=== PATIENT | female | born 1990 | race American Indian/Alaskan Native ===

== ENCOUNTER 2017-02-10 12:27 | Emergency (ER) | payer MEDICAID, OTHER ==
[2017-02-10 13:18] LABS: Basophils % (Auto) 0.2 % (0.0-1.8); Eosinophils % (Auto) 0.4 % (0.0-4.3); Hematocrit 37.1 % (30.3-42.9); Hemoglobin 12.3 gm/dl (10.1-14.3); Mean Corpuscular HGB Conc 33 % (30-34); Mean Corpuscular Hemoglobin 28 pg (28-32); Mean Corpuscular Volume 86 fl (79-97); Platelet Count 171 K/mm3 (140-440); Red Blood Count 4.32 M/mm3 (3.65-5.03); Red Cell Distribution Width 14.9 % (13.2-15.2); White Blood Count 9.5 K/mm3 (4.5-11.0)
[2017-02-10 13:52] LABS: Bacteria,Urine 1+ /HPF (Negative); Bilirubin,Urine NEG (Negative); Blood,Urine LG (Negative); Ketones,Urine NEG (Negative); Leukocyte Esterase,Urine NEG (Negative); Nitrite,Urine NEG (Negative); Urobilinogen,Urine < 2.0 mg/dL (<2.0)
--- NOTE | 2017-02-10 13:53 | Emergency Department Report ---
ED Female HPI - General Chief complaint: Vaginal Bleeding Stated complaint: BACK PAIN/VAGINAL BLEEDING Time Seen by Provider: 02/10/17 13:47 Source: patient Mode of arrival: Ambulatory Limitations: No Limitations - History of Present Illness Initial comments: 26 yo female c/o back pain a d vaginal bleeding with . Pt became aware that she was 2 months ago with a home test. She has had no care and began having vaginal bleeding this morning. This is the time that her normal menses would arrive. She is a because of a spontaneous miscarriage. Pt thought that she could not get . MD Complaint: vaginal bleeding -: Gradual, This morning Location: other (back pain) Severity: severe Severity scale (0 -10): 7 Quality: aching Consistency: constant Improves with: none Worsens with: movement Are you Now?: Yes Associated Symptoms: nausea/vomiting (nausea ,has not vomitied) - Related Data Sexually active: Yes Previous Rx's Medication Instructions Recorded Last Taken Type Metoclopramide [Reglan] 10 mg PO TID #12 tab 02/10/17 Unknown Rx Allergies Allergy/AdvReac Type Severity Reaction Status Date / Time No Known Allergies Allergy Unverified 02/10/17 12:35 ED Review of Systems ROS: Stated complaint: BACK PAIN/VAGINAL BLEEDING Other details as noted in HPI Constitutional: denies: chills, fever Eyes: denies: eye pain, eye discharge, vision change ENT: denies: ear pain, throat pain Respiratory: denies: cough, shortness of breath, wheezing Cardiovascular: denies: chest pain, palpitations Endocrine: no symptoms reported Gastrointestinal: nausea. denies: abdominal pain, diarrhea Genitourinary: denies: urgency, dysuria, discharge Musculoskeletal: back pain. denies: joint swelling, arthralgia Skin: denies: rash, lesions Neurological: denies: headache, weakness, paresthesias Psychiatric: denies: anxiety, depression Hematological/Lymphatic: denies: easy bleeding, easy bruising ED Past Medical Hx - Past Medical History Previous Medical History?: Yes Additional medical history: 1, miscarriage 1,Hep B - Surgical History Past Surgical History?: No - Family History Family history: hypertension - Social History Smoking Status: Former Smoker Substance Use Type: None - Medications Home Medications: Home Medications Medication Instructions Recorded Confirmed Last Taken Type Metoclopramide [Reglan] 10 mg PO TID #12 tab 02/10/17 Unknown Rx ED Physical Exam - General Limitations: No Limitations General appearance: alert, in no apparent distress - Head Head exam: Present: atraumatic, normocephalic - Eye Eye exam: Present: normal appearance - ENT ENT exam: Present: mucous membranes moist - Neck Neck exam: Present: normal inspection, full ROM - Respiratory Respiratory exam: Present: normal lung sounds bilaterally. Absent: respiratory distress, wheezes - Cardiovascular Cardiovascular Exam: Present: regular rate, normal rhythm. Absent: systolic murmur, diastolic murmur, rubs, gallop - GI/Abdominal GI/Abdominal exam: Present: soft, normal bowel sounds - Rectal Rectal exam: Present: deferred - Extremities Exam Extremities exam: Present: normal inspection, full ROM - Back Exam Back exam: Present: normal inspection, full ROM, tenderness (across lower lumbar area) - Neurological Exam Neurological exam: Present: alert, oriented X3, CN II-XII intact - Psychiatric Psychiatric exam: Present: normal affect, normal mood - Skin Skin exam: Present: warm, dry, intact, normal color. Absent: rash ED Course Vital Signs 02/10/17 02/10/17 02/10/17 12:36 13:52 14:00 Temperature 99.6 F Pulse Rate 84 73 73 Respiratory 20 11 L 23 Rate Blood Pressure 168/94 121/64 O2 Sat by Pulse 100 99 Oximetry ED Medical Decision Making - Lab Data Result diagrams: 02/10/17 12:51 - Radiology Data Radiology results: report reviewed (US: SIUP, 13 WEEKS AND 4 DAYS, 3.3 LEFT OVARIAN CYSTS) Critical care attestation.: If time is entered above; I have spent that time in minutes in the direct care of this critically ill patient, excluding procedure time. ED Disposition Clinical Impression: Threatened miscarriage, Nausea, Ovarian cyst Qualifiers: Weeks of gestation: 9 weeks Qualified Code(s): Z3A.09 - 9 weeks gestation of Back ache Qualifiers: Chronicity: acute Back pain laterality: unspecified Sciatica presence: without sciatica Disposition: - TO HOME OR SELFCARE Is pt being admited?: No Does the pt Need Aspirin: No Condition: Stable Instructions: Threatened Miscarriage (ED), (ED), Morning Sickness (ED ) Prescriptions: Metoclopramide [Reglan] 10 mg PO TID #12 tab Referrals: DICRISTINA,ALICIA, MD [Primary Care Provider] - 3-5 Days FE MARAVILLA MD [Staff Physician] - 3-5 Days ALAN VELÁSQUEZ MD [Staff Physician] - 3-5 Days KANG COLLINS MD [Referring] - 3-5 Days Time of Disposition: 15:37
[2017-02-10 13:58] LABS: RBC,Urine > 182.0 /HPF (0.0-6.0)
--- NOTE | 2017-02-10 15:31 | Ultrasound Report ---
ULTRASOUND OB LESS THAN 14 WEEKS FETUS History vaginal bleeding, pain, question ectopic . Technique: Transabdominal ultrasound with Doppler interrogation. Findings: The uterus is anteverted. The uterus measures 16 x 7 x 7 cm. No uterine mass. An intrauterine with heart rate measuring 160 beats per minute is identified. Estimated age of ultrasound is 13 weeks, 4 days. Estimated due date is 08/14/17. The placenta appears to be forming in the posterior, fundal region. No subplacental collection. Amniotic fluid volume appears normal. The right ovary is unremarkable. The left ovary contains a 3.3 cm unilocular cyst. No pelvic fluid collection. Impression: Viable, single intrauterine dated at 13 weeks, 4 days. 3.3 cm left ovarian cyst.
[2017-02-10 15:56] VITALS: BP 124/78
== END 2017-02-10 15:56 | disposition home or self-care (01) ==
LOC: ED 12:27
DX: O20.0 Threatened abortion (principal); O34.81 Maternal care for other abnormalities of pelvic organs, first trimester; N83.202 Unspecified ovarian cyst, left side; Z3A.09 9 weeks gestation of pregnancy
CPT/HCPCS: 36415; 76801; 81001; 84702; 85025; 86850; 86900; 86901; 87210; 87591; 99284

== ENCOUNTER 2017-02-14 05:03 | Emergency (ER) | payer MEDICAID, OTHER ==
[2017-02-14 05:59] LABS: Basophils % (Auto) 0.2 % (0.0-1.8); Eosinophils % (Auto) 0.5 % (0.0-4.3); Hematocrit 37.5 % (30.3-42.9); Hemoglobin 12.5 gm/dl (10.1-14.3); Mean Corpuscular HGB Conc 33 % (30-34); Mean Corpuscular Hemoglobin 28 pg (28-32); Mean Corpuscular Volume 86 fl (79-97); Platelet Count 165 K/mm3 (140-440); Red Blood Count 4.39 M/mm3 (3.65-5.03); Red Cell Distribution Width 14.9 % (13.2-15.2)
[2017-02-14 06:12] LABS: Alanine Aminotransferase 27 units/L (7-56); Albumin/Globulin Ratio 1.4 %; Alkaline Phosphatase 38 units/L (35-129); Anion Gap 19 mmol/L; BUN/Creatinine Ratio 10; Blood Urea Nitrogen 5 mg/dL (7-17); Calcium 9.1 mg/dL (8.4-10.2); Carbon Dioxide 22 mmol/L (22-30); Chloride 102.5 mmol/L (98-107); Glucose 98 mg/dL (65-100); Lipase 15 units/L (13-60); Sodium 139 mmol/L (137-145); Total Protein 6.9 g/dL (6.3-8.2)
[2017-02-14 06:34] LABS: Bilirubin,Urine NEG (Negative); Blood,Urine MOD (Negative); Ketones,Urine NEG (Negative); Leukocyte Esterase,Urine NEG (Negative); Mucus,Urine FEW /HPF; Nitrite,Urine NEG (Negative); Protein,Urine <15 mg/dL mg/dL (Negative); Urobilinogen,Urine < 2.0 mg/dL (<2.0)
--- NOTE | 2017-02-14 07:59 | Ultrasound Report ---
FINAL REPORT EXAM: US OB > = 14 WEEKS FETUS HISTORY: pelvic pain, Vaginal bleed COMPARISONS: None. FINDINGS: Transabdominal grayscale, color Doppler and M-mode early 2nd trimester ultrasound Single living intrauterine with recorded cardiac activity of 160 beats per minute. Amniotic fluid volume is subjectively normal. The cervix appears closed and measures approximately 4.2 cm in length. Hypoechoic perigestational probable hemorrhage near the fundus measures to 4.3 cm and involves much less than 50 percent of the gestational sac surface area. The placenta is posterior. Estimated gestational age by ultrasound today is 14 weeks 2 days corresponding to delivery date of 08/13/2017. Biparietal diameter is 2.6 cm Head circumference is 9.9 cm Abdominal circumference is 8 cm Femoral length is 1.2 cm A functional left ovarian cyst measures up to 3.6 cm. The ovaries otherwise demonstrate normal echotexture and measure 6 x 2.1 x 4.3 cm on the right and 6.4 x 4.1 x 5.2 cm on the left. IMPRESSION: Single living intrauterine without evident complication and with estimated gestational age of 14 weeks 2 days corresponding to delivery date of 08/13/2017. Enlarged ovaries without additional findings of torsion. Consider repeat exam for worsening/persistent symptoms. Otherwise, anatomy scan at 20-22 weeks gestational age is suggested.
--- NOTE | 2017-02-14 11:59 | Emergency Department Report ---
ED General Adult HPI - General Chief complaint: Vaginal Bleeding Stated complaint: VAG VLEEDING/13WKS GEST Time Seen by Provider: 02/14/17 11:58 Source: patient Mode of arrival: Ambulatory Limitations: No Limitations - History of Present Illness Severity scale (0 -10): 0 - Related Data Previous Rx's Medication Instructions Recorded Last Taken Type Metoclopramide [Reglan] 10 mg PO TID #12 tab 02/10/17 Unknown Rx Allergies Allergy/AdvReac Type Severity Reaction Status Date / Time No Known Allergies Allergy Unverified 02/10/17 12:35 ED Review of Systems ROS: Stated complaint: VAG VLEEDING/13WKS GEST Other details as noted in HPI ED Past Medical Hx - Past Medical History Previous Medical History?: Yes Additional medical history: 1, miscarriage 1,Hep B. Obesity - Surgical History Past Surgical History?: No - Social History Smoking Status: Former Smoker Substance Use Type: None - Medications Home Medications: Home Medications Medication Instructions Recorded Confirmed Last Taken Type Metoclopramide [Reglan] 10 mg PO TID #12 tab 02/10/17 Unknown Rx ED Physical Exam - General Limitations: No Limitations ED Course Vital Signs 02/14/17 02/14/17 05:12 11:52 Temperature 99.5 F Pulse Rate 76 Respiratory 16 Rate Blood Pressure 141/78 [Right] O2 Sat by Pulse 100 98 Oximetry ED Medical Decision Making - Lab Data Result diagrams: 02/14/17 05:35 02/14/17 05:35 Vital Signs 02/14/17 02/14/17 05:12 11:52 Temperature 99.5 F Pulse Rate 76 Respiratory 16 Rate Blood Pressure 141/78 [Right] O2 Sat by Pulse 100 98 Oximetry Lab Results 02/14/17 02/14/17 02/14/17 Range/Units 05:35 05:35 05:35 WBC 8.0 (4.5-11.0) K/mm3 RBC 4.39 (3.65-5.03) M/mm3 Hgb 12.5 (10.1-14.3) gm/dl Hct 37.5 (30.3-42.9) % MCV 86 (79-97) fl MCH 28 (28-32) pg MCHC 33 (30-34) % RDW 14.9 (13.2-15.2) % Plt Count 165 (140-440) K/mm3 Lymph % (Auto) 29.2 (13.4-35.0) % [place] % (Auto) 13.0 H (0.0-7.3) % Eos % (Auto) 0.5 (0.0-4.3) % Baso % (Auto) 0.2 (0.0-1.8) % Lymph # 2.3 (1.2-5.4) K/mm3 [place] # 1.0 H (0.0-0.8) K/mm3 Eos # 0.0 (0.0-0.4) K/mm3 Baso # 0.0 (0.0-0.1) K/mm3 Seg Neutrophils % 57.1 (40.0-70.0) % Seg Neutrophils # 4.5 (1.8-7.7) K/mm3 Sodium 139 (137-145) mmol/L Potassium 4.0 (3.6-5.0) mmol/L Chloride 102.5 (98-107) mmol/L Carbon Dioxide 22 (22-30) mmol/L Anion Gap 19 mmol/L BUN 5 L (7-17) mg/dL Creatinine 0.5 L (0.7-1.2) mg/dL Estimated GFR > 60 ml/min BUN/Creatinine Ratio 10 % Glucose 98 (65-100) mg/dL Calcium 9.1 (8.4-10.2) mg/dL Total Bilirubin 0.40 (0.1-1.2) mg/dL AST 22 (5-40) units/L ALT 27 (7-56) units/L Alkaline Phosphatase 38 (35-129) units/L Total Protein 6.9 (6.3-8.2) g/dL Albumin 4.0 (3.9-5) g/dL Albumin/Globulin Ratio 1.4 % Lipase 15 (13-60) units/L HCG, Quant 16536 H (0-4) mIU/mL Urine Color (Yellow) Urine Turbidity (Clear) Urine pH (5.0-7.0) Ur Specific [place] (1.003-1.030) Urine Protein (Negative) mg/dL Urine Glucose (UA) (Negative) mg/dL Urine Ketones (Negative) mg/dL Urine Blood (Negative) Urine Nitrite (Negative) Urine Bilirubin (Negative) Urine Urobilinogen (<2.0) mg/dL Ur Leukocyte Esterase (Negative) Urine WBC (Auto) (0.0-6.0) /HPF Urine RBC (Auto) (0.0-6.0) /HPF U Epithel Cells (Auto) (0-13.0) /HPF Urine Mucus /HPF Blood Type Antibody Screen 02/14/17 02/14/17 Range/Units 05:35 06:07 WBC (4.5-11.0) K/mm3 RBC (3.65-5.03) M/mm3 Hgb (10.1-14.3) gm/dl Hct (30.3-42.9) % MCV (79-97) fl MCH (28-32) pg MCHC (30-34) % RDW (13.2-15.2) % Plt Count (140-440) K/mm3 Lymph % (Auto) (13.4-35.0) % [place] % (Auto) (0.0-7.3) % Eos % (Auto) (0.0-4.3) % Baso % (Auto) (0.0-1.8) % Lymph # (1.2-5.4) K/mm3 [place] # (0.0-0.8) K/mm3 Eos # (0.0-0.4) K/mm3 Baso # (0.0-0.1) K/mm3 Seg Neutrophils % (40.0-70.0) % Seg Neutrophils # (1.8-7.7) K/mm3 Sodium (137-145) mmol/L Potassium (3.6-5.0) mmol/L Chloride (98-107) mmol/L Carbon Dioxide (22-30) mmol/L Anion Gap mmol/L BUN (7-17) mg/dL Creatinine (0.7-1.2) mg/dL Estimated GFR ml/min BUN/Creatinine Ratio % Glucose (65-100) mg/dL Calcium (8.4-10.2) mg/dL Total Bilirubin (0.1-1.2) mg/dL AST (5-40) units/L ALT (7-56) units/L Alkaline Phosphatase (35-129) units/L Total Protein (6.3-8.2) g/dL Albumin (3.9-5) g/dL Albumin/Globulin Ratio % Lipase (13-60) units/L HCG, Quant (0-4) mIU/mL Urine Color Yellow (Yellow) Urine Turbidity Clear (Clear) Urine pH 6.0 (5.0-7.0) Ur Specific [place] 1.020 (1.003-1.030) Urine Protein <15 mg/dl (Negative) mg/dL Urine Glucose (UA) Neg (Negative) mg/dL Urine Ketones Neg (Negative) mg/dL Urine Blood Mod (Negative) Urine Nitrite Neg (Negative) Urine Bilirubin Neg (Negative) Urine Urobilinogen < 2.0 (<2.0) mg/dL Ur Leukocyte Esterase Neg (Negative) Urine WBC (Auto) 1.0 (0.0-6.0) /HPF Urine RBC (Auto) 3.0 (0.0-6.0) /HPF U Epithel Cells (Auto) 3.0 (0-13.0) /HPF Urine Mucus Few /HPF Blood Type O POSITIVE Antibody Screen Negative - Radiology Data Radiology results: report reviewed, image reviewed Referring Physician: LUDWIG FRAGOSO Patient Name: JONATHON GARCIA Date of : 1990 Sex: Female Report Date: 2017-02-14 Report Status: [place] [address] Ultrasound Report Signed Patient: JONATHON GARCIA MR#: [id number] : 1990 Acct:[id number] Age/Sex: 26 / F ADM Date: 02/14/17 Loc: ED Attending Dr: Ordering Physician: LUDWIG FRAGOSO MD Date of Service: 02/14/17 Procedure(s): US OB >= 14 weeks Fetus Accession Number(s): [id number] cc: LUDWIG FRAGOSO MD FINAL REPORT EXAM: US OB gt; = 14 WEEKS FETUS HISTORY: pelvic pain, Vaginal bleed COMPARISONS: None. FINDINGS: Transabdominal grayscale, color Doppler and M-mode early 2nd trimester ultrasound Single living intrauterine with recorded cardiac activity of 160 beats per minute. Amniotic fluid volume is subjectively normal. The cervix appears closed and measures approximately 4.2 cm in length. Hypoechoic perigestational probable hemorrhage near the fundus measures to 4.3 cm and involves much less than 50 percent of the gestational sac surface area. The placenta is posterior. Estimated gestational age by ultrasound today is 14 weeks 2 days corresponding to delivery date of 08/13/2017. Biparietal diameter is 2.6 cm Head circumference is 9.9 cm Abdominal circumference is 8 cm Femoral length is 1.2 cm A functional left ovarian cyst measures up to 3.6 cm. The ovaries otherwise demonstrate normal echotexture and measure 6 x 2.1 x 4.3 cm on the right and 6.4 x 4.1 x 5.2 cm on the left. IMPRESSION: Single living intrauterine without evident complication and with estimated gestational age of 14 weeks 2 days corresponding to delivery date of 08/13/2017. Enlarged ovaries without additional findings of torsion. Consider repeat exam for worsening/persistent symptoms. Otherwise, anatomy scan at 20-22 weeks gestational age is suggested. Transcribed By: MB Dictated By: ROSEMARIE DAY MD Electronically Authenticated By: ROSEMARIE DAY MD Signed Date/Time: 02/14/17355 DD/ 5 TD/TT: 02/14/17355 Critical care attestation.: If time is entered above; I have spent that time in minutes in the direct care of this critically ill patient, excluding procedure time. ED Disposition Condition: Stable Referrals: PRIMARY CAREMD [Primary Care Provider] - 3-5 Days
--- NOTE | 2017-02-14 12:08 | Emergency Department Report ---
ED Female HPI - General Chief complaint: Vaginal Bleeding Stated complaint: VAG VLEEDING/13WKS GEST Time Seen by Provider: 02/14/17 11:58 Source: patient, RN notes reviewed, old records reviewed Mode of arrival: Ambulatory Limitations: No Limitations - History of Present Illness Initial comments: This is a 26-year-old female who was previously unknown to this provider, she is 2, para 0. Presents to the ER with a complaint of vaginal bleeding clotting. Patient had similar symptoms on Thursday, her symptoms are slightly worsened. Denies headache, neck pain, chest pain, shortness of breath, irritative/obstructive urinary symptoms. Patient to me makes no indication of abdominal pain or right lower quadrant pain. Patient reports recent vigorous sexual intercourse with her male partner this past Thursday. Her symptoms are intermittent, they do not radiate anywhere, and they did not have exacerbating or relieving factors. MD Complaint: vaginal bleeding -: Gradual Quality: cramping Consistency: intermittent Improves with: none Worsens with: none Are you Now?: Yes Associated Symptoms: vaginal bleeding. denies: nausea/vomiting, fever/chills, headaches, loss of appetite, dysuria, hematuria, rash, shortness of breath, syncope, weakness - Related Data Sexually active: Yes Previous Rx's Medication Instructions Recorded Last Taken Type Metoclopramide [Reglan] 10 mg PO TID #12 tab 02/10/17 Unknown Rx Doxylamine Succinate/Vit B6 1 each PO QHS PRN #30 tablet. 02/14/17 Unknown Rx [Chyna Quintana 10-10 mg Tablet] Vit Calc,Iron,Folic 1 each PO QDAY #30 tablet 02/14/17 Unknown Rx [ Vitamins] Allergies Allergy/AdvReac Type Severity Reaction Status Date / Time No Known Allergies Allergy Unverified 02/10/17 12:35 ED Review of Systems ROS: Stated complaint: VAG VLEEDING/13WKS GEST Other details as noted in HPI ED Past Medical Hx - Past Medical History Previous Medical History?: Yes Additional medical history: 1, miscarriage 1,Hep B. Obesity - Surgical History Past Surgical History?: No - Social History Smoking Status: Former Smoker Substance Use Type: None - Medications Home Medications: Home Medications Medication Instructions Recorded Confirmed Last Taken Type Metoclopramide [Reglan] 10 mg PO TID #12 tab 02/10/17 Unknown Rx Doxylamine Succinate/Vit B6 1 each PO QHS PRN #30 tablet. 02/14/17 Unknown Rx [Chyna Quintana 10-10 mg Tablet] Vit Calc,Iron,Folic 1 each PO QDAY #30 tablet 02/14/17 Unknown Rx [ Vitamins] ED Physical Exam - General Limitations: No Limitations General appearance: alert, in no apparent distress - Head Head exam: Present: atraumatic, normocephalic - Eye Eye exam: Present: normal appearance, EOMI. Absent: nystagmus - ENT ENT exam: Present: normal exam, normal orophraynx, mucous membranes moist, normal external ear exam - Neck Neck exam: Present: normal inspection, full ROM - Respiratory Respiratory exam: Present: normal lung sounds bilaterally. Absent: respiratory distress - Cardiovascular Cardiovascular Exam: Present: regular rate, normal rhythm, normal heart sounds. Absent: systolic murmur, diastolic murmur, rubs, gallop - GI/Abdominal GI/Abdominal exam: Present: soft, normal bowel sounds. Absent: distended, tenderness, guarding, rebound, rigid, pulsatile mass - External exam: Present: normal external exam Speculum exam: Present: normal speculum exam, vaginal bleeding Bi-manual exam: Present: normal bi-manual exam, other (escorted by avionic technician Naa). Absent: cervical motion tendernes, adnexal tenderness, adnexal mass - Extremities Exam Extremities exam: Present: normal inspection, full ROM, normal capillary refill. Absent: pedal edema, joint swelling, calf tenderness - Back Exam Back exam: Present: normal inspection, full ROM. Absent: tenderness, CVA tenderness (R), paraspinal tenderness, vertebral tenderness - Neurological Exam Neurological exam: Present: alert, oriented X3, CN II-XII intact, normal gait, other (Extraocular movements intact. Tongue midline. No facial droop. Facial sensation intact to light touch in the V1, V2, V3 distribution bilaterally. 5 and 5 strength in 4 extremities.. Sensation is intact to light touch in 4 extremities.). Absent: motor sensory deficit - Psychiatric Psychiatric exam: Present: normal affect, normal mood - Skin Skin exam: Present: warm, dry, intact, normal color. Absent: rash ED Course Vital Signs 12/23/17 12/23/17 12/23/17 05:12 11:52 12:06 Temperature 99.5 F Pulse Rate 76 63 Respiratory 16 20 Rate Blood Pressure 131/64 Blood Pressure 141/78 [Right] O2 Sat by Pulse 100 98 100 Oximetry ED Medical Decision Making - Lab Data Result diagrams: 02/14/17 05:35 02/14/17 05:35 Vital Signs 02/14/17 02/14/17 05:12 11:52 Temperature 99.5 F Pulse Rate 76 Respiratory 16 Rate Blood Pressure 141/78 [Right] O2 Sat by Pulse 100 98 Oximetry Lab Results 02/14/17 02/14/17 02/14/17 Range/Units 05:35 05:35 05:35 WBC 8.0 (4.5-11.0) K/mm3 RBC 4.39 (3.65-5.03) M/mm3 Hgb 12.5 (10.1-14.3) gm/dl Hct 37.5 (30.3-42.9) % MCV 86 (79-97) fl MCH 28 (28-32) pg MCHC 33 (30-34) % RDW 14.9 (13.2-15.2) % Plt Count 165 (140-440) K/mm3 Lymph % (Auto) 29.2 (13.4-35.0) % [place] % (Auto) 13.0 H (0.0-7.3) % Eos % (Auto) 0.5 (0.0-4.3) % Baso % (Auto) 0.2 (0.0-1.8) % Lymph # 2.3 (1.2-5.4) K/mm3 [place] # 1.0 H (0.0-0.8) K/mm3 Eos # 0.0 (0.0-0.4) K/mm3 Baso # 0.0 (0.0-0.1) K/mm3 Seg Neutrophils % 57.1 (40.0-70.0) % Seg Neutrophils # 4.5 (1.8-7.7) K/mm3 Sodium 139 (137-145) mmol/L Potassium 4.0 (3.6-5.0) mmol/L Chloride 102.5 (98-107) mmol/L Carbon Dioxide 22 (22-30) mmol/L Anion Gap 19 mmol/L BUN 5 L (7-17) mg/dL Creatinine 0.5 L (0.7-1.2) mg/dL Estimated GFR > 60 ml/min BUN/Creatinine Ratio 10 % Glucose 98 (65-100) mg/dL Calcium 9.1 (8.4-10.2) mg/dL Total Bilirubin 0.40 (0.1-1.2) mg/dL AST 22 (5-40) units/L ALT 27 (7-56) units/L Alkaline Phosphatase 38 (35-129) units/L Total Protein 6.9 (6.3-8.2) g/dL Albumin 4.0 (3.9-5) g/dL Albumin/Globulin Ratio 1.4 % Lipase 15 (13-60) units/L HCG, Quant 30363 H (0-4) mIU/mL Urine Color (Yellow) Urine Turbidity (Clear) Urine pH (5.0-7.0) Ur Specific [place] (1.003-1.030) Urine Protein (Negative) mg/dL Urine Glucose (UA) (Negative) mg/dL Urine Ketones (Negative) mg/dL Urine Blood (Negative) Urine Nitrite (Negative) Urine Bilirubin (Negative) Urine Urobilinogen (<2.0) mg/dL Ur Leukocyte Esterase (Negative) Urine WBC (Auto) (0.0-6.0) /HPF Urine RBC (Auto) (0.0-6.0) /HPF U Epithel Cells (Auto) (0-13.0) /HPF Urine Mucus /HPF Blood Type Antibody Screen 02/14/17 02/14/17 Range/Units 05:35 06:07 WBC (4.5-11.0) K/mm3 RBC (3.65-5.03) M/mm3 Hgb (10.1-14.3) gm/dl Hct (30.3-42.9) % MCV (79-97) fl MCH (28-32) pg MCHC (30-34) % RDW (13.2-15.2) % Plt Count (140-440) K/mm3 Lymph % (Auto) (13.4-35.0) % [place] % (Auto) (0.0-7.3) % Eos % (Auto) (0.0-4.3) % Baso % (Auto) (0.0-1.8) % Lymph # (1.2-5.4) K/mm3 [place] # (0.0-0.8) K/mm3 Eos # (0.0-0.4) K/mm3 Baso # (0.0-0.1) K/mm3 Seg Neutrophils % (40.0-70.0) % Seg Neutrophils # (1.8-7.7) K/mm3 Sodium (137-145) mmol/L Potassium (3.6-5.0) mmol/L Chloride (98-107) mmol/L Carbon Dioxide (22-30) mmol/L Anion Gap mmol/L BUN (7-17) mg/dL Creatinine (0.7-1.2) mg/dL Estimated GFR ml/min BUN/Creatinine Ratio % Glucose (65-100) mg/dL Calcium (8.4-10.2) mg/dL Total Bilirubin (0.1-1.2) mg/dL AST (5-40) units/L ALT (7-56) units/L Alkaline Phosphatase (35-129) units/L Total Protein (6.3-8.2) g/dL Albumin (3.9-5) g/dL Albumin/Globulin Ratio % Lipase (13-60) units/L HCG, Quant (0-4) mIU/mL Urine Color Yellow (Yellow) Urine Turbidity Clear (Clear) Urine pH 6.0 (5.0-7.0) Ur Specific [place] 1.020 (1.003-1.030) Urine Protein <15 mg/dl (Negative) mg/dL Urine Glucose (UA) Neg (Negative) mg/dL Urine Ketones Neg (Negative) mg/dL Urine Blood Mod (Negative) Urine Nitrite Neg (Negative) Urine Bilirubin Neg (Negative) Urine Urobilinogen < 2.0 (<2.0) mg/dL Ur Leukocyte Esterase Neg (Negative) Urine WBC (Auto) 1.0 (0.0-6.0) /HPF Urine RBC (Auto) 3.0 (0.0-6.0) /HPF U Epithel Cells (Auto) 3.0 (0-13.0) /HPF Urine Mucus Few /HPF Blood Type O POSITIVE Antibody Screen Negative - Radiology Data Radiology results: report reviewed, image reviewed Referring Physician: ED DOC Patient Name: JONATHON GARCIA Date of : 1990 Sex: Female Report Date: 2017-02-14 Report Status: Finalized Findings [facility] [address] [place] [address] Ultrasound Report Signed Patient: JONATHON GARCIA MR#: [id number] : 1990 Acct:[id number] Age/Sex: 26 / F ADM Date: 02/14/17 Loc: ED Attending Dr: Ordering Physician: LUDWIG FRAGOSO MD Date of Service: 02/14/17 Procedure(s): US OB >= 14 weeks Fetus Accession Number(s): [id number] cc: ED MD RICHMOND FINAL REPORT EXAM: US OB gt; = 14 WEEKS FETUS HISTORY: pelvic pain, Vaginal bleed COMPARISONS: None. FINDINGS: Transabdominal grayscale, color Doppler and M-mode early 2nd trimester ultrasound Single living intrauterine with recorded cardiac activity of 160 beats per minute. Amniotic fluid volume is subjectively normal. The cervix appears closed and measures approximately 4.2 cm in length. Hypoechoic perigestational probable hemorrhage near the fundus measures to 4.3 cm and involves much less than 50 percent of the gestational sac surface area. The placenta is posterior. Estimated gestational age by ultrasound today is 14 weeks 2 days corresponding to delivery date of 08/13/2017. Biparietal diameter is 2.6 cm Head circumference is 9.9 cm Abdominal circumference is 8 cm Femoral length is 1.2 cm A functional left ovarian cyst measures up to 3.6 cm. The ovaries otherwise demonstrate normal echotexture and measure 6 x 2.1 x 4.3 cm on the right and 6.4 x 4.1 x 5.2 cm on the left. IMPRESSION: Single living intrauterine without evident complication and with estimated gestational age of 14 weeks 2 days corresponding to delivery date of 08/13/2017. Enlarged ovaries without additional findings of torsion. Consider repeat exam for worsening/persistent symptoms. Otherwise, anatomy scan at 20-22 weeks gestational age is suggested. Transcribed By: MB Dictated By: ROSEMARIE DAY MD Electronically Authenticated By: ROSEMARIE DAY MD Signed Date/Time: 02/14/17355 DD/ 5 TD/TT: 02/14/17355 - Medical Decision Making Differential diagnosis, including but not limited to: Miscarriage, threatened miscarriage, urinary tract infection, placenta previa Assessment and plan: 26-year-old female with vaginal bleeding, no right lower quadrant pain or tenderness, afebrile with reassuring vital signs, very unlikely to be appendicitis or surgical emergency, patient resting comfortably on stretcher, plan of starting the phone, and in no distress. Ultrasound results are as follows: Single living intrauterine without evident complication and with estimated gestational age of 14 weeks 2 days corresponding to delivery date of 08/13/2017. Enlarged ovaries without additional findings of torsion. Consider repeat exam for worsening/persistent symptoms. Otherwise, anatomy scan at 20-22 weeks gestational age is suggested. Head no gynecologic tenderness on my pelvic exam, urinalysis negative for UTI, Rh+. Patient is going to follow-up early next year, she reports that she is applied for emergency Medicaid, she will be discharged at this time, return precautions are reviewed. Critical care attestation.: If time is entered above; I have spent that time in minutes in the direct care of this critically ill patient, excluding procedure time. ED Disposition Clinical Impression: Threatened miscarriage Disposition: DC- TO HOME OR SELFCARE Is pt being admited?: No Does the pt Need Aspirin: No Condition: Stable Instructions: Threatened Miscarriage (ED) Additional Instructions: Rest and avoid heavy lifting. Avoid strenuous physical activity. Follow-up with an CODE CLERK doctor within the next 7-10 days to start outpatient care. Avoid sex and sexual intercourse until cleared by a primary care doctor or a prepress proofer. Return to the ER right away with new pain, bleeding more than 2 pads soaked for hour, lightheadedness, chest pain, shortness of breath, severe abdominal pain, confusion, projectile vomiting, inability to tolerate liquid feeds. Referrals: PRIMARY CARE, [Primary Care Provider] - 3-5 Days [facility] [Provider Group] - 3-5 Days [facility] [Provider Group] - 3-5 Days [facility] [Provider Group] - 3-5 Days Forms: Work/School Release Form(ED)
[2017-02-14 12:11] VITALS: BP 131/64
== END 2017-02-14 12:39 | disposition home or self-care (01) ==
LOC: ED 05:03
DX: O20.0 Threatened abortion (principal); Z3A.14 14 weeks gestation of pregnancy; Z87.891 Personal history of nicotine dependence
CPT/HCPCS: 36415; 76805; 80053; 81001; 83690; 84702; 85025; 86850; 86900; 86901; 99284

== ENCOUNTER 2017-05-25 10:59 | Outpatient (CLI) | payer BC, MEDICAID ==
[2017-05-25 11:37] LABS: Alanine Aminotransferase 21 units/L (7-56); Albumin 3.7 g/dL (3.9-5)
[2017-05-25 11:50] LABS: Bilirubin,Direct < 0.2 mg/dL (0-0.2)
== END 2017-05-25 11:00 | disposition home or self-care (01) ==
LOC: LAB 10:59
PROVIDERS: ATTEND Midwife
DX: Z34.92 Encounter for supervision of normal pregnancy, unspecified, second trimester (principal); Z87.891 Personal history of nicotine dependence; Z3A.26 26 weeks gestation of pregnancy
CPT/HCPCS: 36415; 80074; 87591

== ENCOUNTER 2017-06-10 18:46 | Outpatient (CLI) | payer BC, MEDICAID ==
[2017-06-10] MEDS ORDERED: LACTATED RINGERS 1,000 ML IV SCH (19:38)
[2017-06-10] MEDS ORDERED: ZOFRAN IV ONE (20:00)
[2017-06-10 20:24] LABS: Bacteria,Urine 1+ /HPF (Negative); Bilirubin,Urine NEG (Negative); Blood,Urine NEG (Negative); Color,Urine Yellow (Yellow); Mucus,Urine FEW /HPF
--- NOTE | 2017-06-10 20:31 | Ultrasound Report ---
FINAL REPORT PROCEDURE: US OB LIMITED TECHNIQUE: Real-time limited sonographic examination was performed for evaluation of size, position, heartbeat, fluid volume for each fetus with image documentation (1 or more fetuses). CPT 83138 HISTORY: vaginal leaking COMPARISON: No prior studies are available for comparison. FINDINGS: There is a single live intrauterine gestation in cephalic presentation. Amniotic fluid index is 11 centimeters. Heart rate is 145 beats per minute. IMPRESSION: Amniotic fluid index is 11 centimeters.
== END 2017-06-10 20:47 | disposition home or self-care (01) ==
LOC: TRG 18:46
PROVIDERS: ATTEND Obstetrics & Gynecology
DX: O42.92 Full-term premature rupture of membranes, unspecified as to length of time between rupture and onset of labor (principal); Z3A.30 30 weeks gestation of pregnancy
CPT/HCPCS: 59025; 76815; 81001; 96360; 96374; J2405; J7120

== ENCOUNTER 2018-03-17 15:59 | Outpatient (CLI) | payer BC, MEDICAID ==
[2018-03-17] MEDS ORDERED: CELESTONE SOLUSPAN IM SCH (17:00)
== END 2018-03-17 17:24 | disposition home or self-care (01) ==
LOC: TRG 15:59
PROVIDERS: ATTEND Obstetrics & Gynecology
DX: O47.03 False labor before 37 completed weeks of gestation, third trimester (principal); O99.513 Diseases of the respiratory system complicating pregnancy, third trimester; J45.909 Unspecified asthma, uncomplicated; Z3A.28 28 weeks gestation of pregnancy
CPT/HCPCS: J0702

== ENCOUNTER 2018-04-23 18:11 | Inpatient (IN) | payer BC ==
[2018-04-23] MEDS ORDERED: LACTATED RINGERS 500 ML IV ONE (18:13)
[2018-04-23 19:26] LABS: Bilirubin,Urine NEG (Negative); Blood,Urine NEG (Negative); Color,Urine Yellow (Yellow); Mucus,Urine 1+ /HPF
[2018-04-23] MEDS ORDERED: MAGNESIUM SULFATE 4GM/100ML 4 GM/100 ML BAG IV ONE (19:44)
[2018-04-24] MEDS: MAGNESIUM SULFATE 40GM/1000ML 40 GM/1,000 ML BAG IV SCH ×2 (00:05→21:51)
[2018-04-24] MEDS: CELESTONE SOLUSPAN IM SCH (01:13)
[2018-04-24] MEDS ORDERED: AMPICILLIN/NS 2 GM/100 ML 2 GM/100 ML BAG IV ONE (01:29)
[2018-04-24] MEDS ORDERED: COLACE PO PRN (02:31)
[2018-04-24 02:53] LABS: Hematocrit 33.3 % (30.3-42.9); Hemoglobin 11.1 gm/dl (10.1-14.3); Mean Corpuscular HGB Conc 33 % (30-34); Mean Corpuscular Volume 87 fl (79-97); Platelet Count 159 K/mm3 (140-440); Red Blood Count 3.82 M/mm3 (3.65-5.03); Red Cell Distribution Width 13.9 % (13.2-15.2)
[2018-04-24 03:40] LABS: Band Neutrophils # (Manual) 0.1 K/mm3; Basophils % (Manual) 0 % (0.0-1.8); RBC Morphology Normal; Total Cells Counted 100
[2018-04-24] MEDS ORDERED: MAGNESIUM SULFATE 4GM/100ML 4 GM/100 ML BAG IV ONE (04:49)
[2018-04-24] MEDS: AMPICILLIN/NS 1 GM/50 ML 1 GM/50 ML BAG IV SCH ×5 (05:30→22:28)
[2018-04-24 08:34] LABS: Bilirubin,Urine NEG (Negative); Blood,Urine MOD (Negative); Color,Urine Yellow (Yellow); Mucus,Urine FEW /HPF; Protein,Urine <15 mg/dL mg/dL (Negative); Urobilinogen,Urine < 2.0 mg/dL (<2.0)
[2018-04-24] MEDS: PRENATAL VITAMIN PO SCH (09:36)
[2018-04-24] MEDS: TYLENOL PO PRN ×2 (10:50→23:45)
--- NOTE | 2018-04-24 11:10 | History and Physical Report ---
History of Present Illness Date of examination: 04/23/18 Date of admission: 04/23/18 21:31 Chief complaint: I'm having contractions. History of present illness: Patient is a 27 year old who presents at 34 weeks with dilation to 4cm and subsequent pprom. Patient has a history of labor, pprom and delivery in may 2017. 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 - Obstetrical History Expected Date of Delivery: 06/02/18 Actual Gestation: 34 Week(s) 4 Day(s) : 3 Medications and Allergies Allergies Allergy/AdvReac Type Severity Reaction Status Date / Time No Known Allergies Allergy Verified 03/17/18 16:01 Home Medications Medication Instructions Recorded Confirmed Last Taken Type Vit Calc,Iron,Folic 1 each PO QDAY #30 tablet 02/14/17 06/12/17 06/11/17 Rx [ Vitamins] HYDROcodone/ACETAMINOPHEN [[place] 1 each PO Q6H PRN #20 tablet 06/16/17 Unknown Rx 5-325 Tablet] Ibuprofen [Motrin] 800 mg PO Q8HR PRN #30 tablet 06/16/17 Unknown Rx Cefuroxime Axetil [Ceftin] 500 mg PO Q12H 7 Days #14 ml 06/19/17 Unknown Rx metroNIDAZOLE [Flagyl] 500 mg PO Q12HR #14 tab 06/19/17 Unknown Rx Active Meds: Active Medications Acetaminophen (Tylenol) 650 mg PO Q4H PRN PRN Reason: Pain MILD(1-3)/Fever >100.5/BRANTLEY Last Admin: 04/24/18 10:50 Dose: 650 mg Documented by: Betamethasone Acet/Betameth SodPhos ([place] Soluspan) 12 mg IM Q24H ALAN Stop: 04/24/18 20:01 Last Admin: 04/24/18 01:13 Dose: 12 mg Documented by: Butorphanol Tartrate (Stadol) 2 mg IV Q2H PRN PRN Reason: Labor Pain Docusate Sodium (Colace) 100 mg PO Q12H PRN PRN Reason: Constipation Magnesium Sulfate (Magnesium Sulfate 40gm/1000ml) 40 gm in 1,000 mls @ 50 mls/hr IV DIRECT ALAN Last Admin: 04/24/18 00:05 Dose: 2 gm/hr, 50 mls/hr Documented by: Ampicillin Sodium (Ampicillin/Ns 1 Gm/50 Ml) 1 gm in 50 mls @ 100 mls/hr IV Q4HR [facility]; Protocol Last Admin: 04/24/18 09:38 Dose: 100 mls/hr Documented by: Multivitamins/Iron/Calcium ( Vitamin) 1 each PO QDAY [facility] Last Admin: 04/24/18 09:36 Dose: 1 each Documented by: Zolpidem Tartrate (Ambien) 10 mg PO QHS PRN PRN Reason: Insomnia Review of Systems All systems: negative Genitourinary: leakage of fluid, contractions - Vital Signs Vital signs: Vital Signs Pulse BP 112 H 134/65 04/23/18 18:29 04/23/18 18:29 Temp Pulse Resp BP Pulse Ox 99.5 F 100 H 18 109/54 98 04/24/18 04:39 04/24/18 11:03 04/24/18 04:39 04/24/18 10:18 04/24/18 11:03 - Physical Exam Breasts: Cardiovascular: Regular rate, Normal S1, Normal S2 Lungs: Positive: Clear to auscultation, Normal air movement Abdomen: Positive: normal appearance, soft, normal bowel sounds. Negative: distention, tenderness Genitourinary (Female): Positive: normal external genitalia, normal perenium Vulva: both: normal Vagina: Positive: normal moisture. Negative: discharge Cervix: Negative: lesion, discharge Uterus: Positive: normal size, normal contour Adnexa: both: normal Anus/Rectum: Positive: normal perianal skin, heme negative. Negative: rectal mass, hemorrhoids Extremities: Deep Tendon Reflex Grade: Normal +2 - Obstetrical FHR: auscultation normal Cervical Dilatation: 4 Cervical Effacement Percentage: 90 Results Result Diagrams: 04/24/18 00:00 Abnormal lab results 04/24/18 04/24/18 Range/Units 00:00 06:18 Monocytes % (Manual) 8.0 H (0.0-7.3) % Magnesium 3.80 H (1.7-2.3) mg/dL All other labs normal. Assessment and Plan IUP at 34 weeks with ptl and pprom. Will admit for steroids and magnesium therap y. Patient is having only irregular contractions. Should she progress to active labor, patient will have a repeat .
[2018-04-24] MEDS: LACTATED RINGERS 1,000 ML IV SCH (21:53)
[2018-04-25] MEDS: AMBIEN PO PRN (02:00)
[2018-04-25] MEDS: CELESTONE SOLUSPAN IM SCH (02:02)
[2018-04-25] MEDS: AMPICILLIN/NS 1 GM/50 ML 1 GM/50 ML BAG IV SCH ×4 (02:03→16:15)
[2018-04-25] MEDS: LACTATED RINGERS 1,000 ML IV SCH ×2 (06:15→20:17)
[2018-04-25] MEDS: PRENATAL VITAMIN PO SCH (10:30)
--- NOTE | 2018-04-25 14:41 | Progress Note ---
Assessment and Plan HD 2 for this iup at 34 weeks with pprom and ptl. Stable. Will discontinue magnesium tonight. Will allow patient to eat. Subjective - Subjective Date of service: 04/25/18 Interval history: Patient is a 27 year old who presents at 34 weeks with dilation to 4cm and subsequent pprom. Patient has a history of labor, pprom and delivery in may 2017. Pt was delivered via for poor maternal pushing effort Patient reports: loss of fluid, contractions Objective - Vital Signs Vital Signs: Vital Signs - 12hr 04/25/18 04/25/18 04/25/18 02:42 02:47 02:52 Temperature Pulse Rate 102 H 104 H 105 H Respiratory Rate Blood Pressure O2 Sat by Pulse 100 100 100 Oximetry 04/25/18 04/25/18 04/25/18 02:57 03:02 03:07 Temperature Pulse Rate 104 H 105 H 108 H Respiratory Rate Blood Pressure O2 Sat by Pulse 100 100 100 Oximetry 04/25/18 04/25/18 04/25/18 03:12 03:17 03:22 Temperature Pulse Rate 106 H 112 H 103 H Respiratory Rate Blood Pressure O2 Sat by Pulse 100 99 99 Oximetry 04/25/18 04/25/18 04/25/18 03:27 03:32 03:37 Temperature Pulse Rate 105 H 103 H 103 H Respiratory Rate Blood Pressure O2 Sat by Pulse 98 100 100 Oximetry 04/25/18 04/25/18 04/25/18 03:42 03:47 03:52 Temperature Pulse Rate 104 H 107 H 105 H Respiratory Rate Blood Pressure O2 Sat by Pulse 100 100 99 Oximetry 04/25/18 04/25/18 04/25/18 03:57 04:02 04:43 Temperature Pulse Rate 107 H 109 H 100 H Respiratory Rate Blood Pressure 135/72 O2 Sat by Pulse 99 99 Oximetry 04/25/18 04/25/18 04/25/18 05:48 11:06 14:28 Temperature 100.0 F H Pulse Rate 101 H 102 H Respiratory 18 Rate Blood Pressure 117/65 124/66 O2 Sat by Pulse Oximetry - Exam Breasts: deferred Cardiovascular: Regular rate, Normal S1, Normal S2 Abdomen: Present: normal appearance, soft. Absent: distention, tenderness Uterus: Present: normal FHR: auscultation normal - Labs Labs: Abnormal Labs 04/24/18 04/24/18 04/24/18 00:00 06:18 14:08 Monocytes % (Manual) 8.0 H Magnesium 3.80 H 4.30 H 04/24/18 04/25/18 04/25/18 18:17 00:17 05:51 Monocytes % (Manual) Magnesium 4.40 H 4.10 H 4.30 H 04/25/18 13:15 Monocytes % (Manual) Magnesium 4.30 H Laboratory Results - last 24 hr 04/24/18 04/24/18 04/25/18 14:08 18:17 00:17 Magnesium 4.30 H 4.40 H 4.10 H 04/25/18 04/25/18 05:51 13:15 Magnesium 4.30 H 4.30 H
[2018-04-25] MEDS: MAGNESIUM SULFATE 40GM/1000ML 40 GM/1,000 ML BAG IV SCH (18:00)
[2018-04-26] MEDS: AMPICILLIN/NS 1 GM/50 ML 1 GM/50 ML BAG IV SCH ×5 (00:03→22:46)
[2018-04-26] MEDS: AMBIEN PO PRN (00:03)
[2018-04-26] MEDS: LACTATED RINGERS 1,000 ML IV SCH ×2 (02:48→22:46)
[2018-04-26] MEDS: PRENATAL VITAMIN PO SCH (09:40)
[2018-04-26] MEDS: MAGNESIUM SULFATE 40GM/1000ML 40 GM/1,000 ML BAG IV SCH (11:54)
[2018-04-26] MEDS: STADOL IV PRN (11:54)
--- NOTE | 2018-04-26 16:00 | Consultation ---
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 Family/Genetic History: none Social history: no significant social history - Obstetrical History Expected Date of Delivery: 05/31/18 Actual Gestation: 35 Week(s) 0 Day(s) : 3 Hx # Term Pregnancies: 0 Number of Pregnancies: 1 (Csection) Medications and Allergies Allergies Allergy/AdvReac Type Severity Reaction Status Date / Time No Known Allergies Allergy Verified 03/17/18 16:01 Home Medications Medication Instructions Recorded Confirmed Last Taken Type Vit Calc,Iron,Folic 1 each PO QDAY #30 tablet 02/14/17 06/12/17 06/11/17 Rx [ Vitamins] HYDROcodone/ACETAMINOPHEN [[place] 1 each PO Q6H PRN #20 tablet 06/16/17 Unknown Rx 5-325 Tablet] Ibuprofen [Motrin] 800 mg PO Q8HR PRN #30 tablet 06/16/17 Unknown Rx Cefuroxime Axetil [Ceftin] 500 mg PO Q12H 7 Days #14 ml 06/19/17 Unknown Rx metroNIDAZOLE [Flagyl] 500 mg PO Q12HR #14 tab 06/19/17 Unknown Rx Active Meds: Active Medications Acetaminophen (Tylenol) 650 mg PO Q4H PRN PRN Reason: Pain MILD(1-3)/Fever >100.5/BRANTLEY Last Admin: 04/24/18 23:45 Dose: 650 mg Documented by: Butorphanol Tartrate (Stadol) 2 mg IV Q2H PRN PRN Reason: Labor Pain Last Admin: 04/26/18 11:54 Dose: 2 mg Documented by: Docusate Sodium (Colace) 100 mg PO Q12H PRN PRN Reason: Constipation Last Admin: 04/25/18 04:24 Dose: 100 mg Documented by: Magnesium Sulfate (Magnesium Sulfate 40gm/1000ml) 40 gm in 1,000 mls @ 50 mls/hr IV DIRECT ALAN Last Admin: 04/26/18 11:54 Dose: 2 gm/hr, 50 mls/hr Documented by: Ampicillin Sodium (Ampicillin/Ns 1 Gm/50 Ml) 1 gm in 50 mls @ 100 mls/hr IV Q4HR ALAN; Protocol Last Admin: 04/26/18 09:39 Dose: 100 mls/hr Documented by: Lactated Ringer's (Lactated Ringers) 1,000 mls @ 75 mls/hr IV DIRECT [facility] Last Admin: 04/26/18 02:48 Dose: 75 mls/hr Documented by: Multivitamins/Iron/Calcium ( Vitamin) 1 each PO QDAY [facility] Last Admin: 04/26/18 09:40 Dose: 1 each Documented by: Zolpidem Tartrate (Ambien) 10 mg PO QHS PRN PRN Reason: Insomnia Last Admin: 04/26/18 00:03 Dose: 10 mg Documented by: Review of Systems Constitutional: no weight loss, no fever, no chills, no sweats Eyes: deferred Cardiovascular: no rapid/irregular heart beat, no syncope, no shortness of b reath Respiratory: no cough Gastrointestinal: no abdominal pain, no nausea, no vomiting Neurological: no weakness, no numbness - Vital Signs Vital signs: Vital Signs Pulse BP 112 H 134/65 04/23/18 18:29 04/23/18 18:29 Temp Pulse Resp BP Pulse Ox 98.6 F 87 18 118/62 99 04/26/18 12:00 04/26/18 11:37 04/26/18 02:13 04/26/18 11:37 04/25/18 23:37 - Physical Exam Cardiovascular: Regular rate Abdomen: Positive: normal appearance, soft. Negative: distention, tenderness, guarding - Obstetrical FHR: category 1 Results Result Diagrams: 04/24/18 00:00 Abnormal lab results 04/25/18 04/26/18 04/26/18 Range/Units 19:05 01:21 05:58 Magnesium 3.60 H 3.90 H 3.40 H (1.7-2.3) mg/dL 04/26/18 Range/Units 13:24 Magnesium 4.00 H (1.7-2.3) mg/dL All other labs normal. Assessment and Plan the patient is 27 yo @ 35 weeks with anselmo 05/31/18 that is PTL, PPROM? I was asked to consult for patient PPROM as the patient was admitted on 04/24 and reported as PTL/PROM on and the admitting note says PPROM in which case the standard of care would have been to deliver the patient; today there is question of if the patient is ruptured and the HP does not specifiy clearly ROM so I am unsure as the ROM and I would ask for clarity from the admitting physician or repeat r/o ROM; I did then speak with Dr Rasheed as well and there was not an exam that was performed on the patient to confirm or r/o ROM - if the patient were ROM the patient should be delivered - the patient needs to have an exam for ROM - if the patient were not ROM the patient may be expectantly managed for PTL or have CS with active labor and BMZ course - the patient should be on continuous monitoring now - US is pending - ensure vertex fetus - deliver for PPROM or standard maternal indications - patient has Hep B standard precautions - sp beta course - I relayed this information to Dr Cassidy Charlton
--- NOTE | 2018-04-26 17:43 | Progress Note ---
Assessment and Plan A/P HD#4 for PTL and possible rupture workup today LUIS ARMANDO 12 , no pooling, nitrazine sublet blue , wet mount no ferning + clue cells will allow to eat mag to be d/cd continue present mgt with amp for GBS protection close monitor of maternal and status Subjective - Subjective Date of service: 04/26/18 Principal diagnosis: PTL Patient reports: contractions, no new complaints, no loss of fluid, no vaginal bleeding Objective - Vital Signs Vital Signs: Vital Signs - 12hr 04/26/18 04/26/18 04/26/18 07:36 08:00 11:37 Temperature 98.0 F Pulse Rate 93 H 87 Blood Pressure 130/58 118/62 O2 Sat by Pulse Oximetry 04/26/18 04/26/18 04/26/18 12:00 16:16 16:17 Temperature 98.6 F Pulse Rate 83 82 Blood Pressure 135/65 O2 Sat by Pulse 99 Oximetry 04/26/18 04/26/18 04/26/18 16:22 16:27 16:32 Temperature Pulse Rate 82 78 77 Blood Pressure O2 Sat by Pulse 100 99 100 Oximetry 04/26/18 04/26/18 04/26/18 16:36 16:37 16:42 Temperature Pulse Rate 79 87 84 Blood Pressure 137/64 O2 Sat by Pulse 99 99 Oximetry 04/26/18 04/26/18 04/26/18 16:47 16:52 16:57 Temperature Pulse Rate 88 89 83 Blood Pressure O2 Sat by Pulse 99 99 98 Oximetry 04/26/18 04/26/18 04/26/18 17:02 17:07 17:12 Temperature Pulse Rate 81 84 83 Blood Pressure O2 Sat by Pulse 99 99 99 Oximetry 04/26/18 04/26/18 04/26/18 17:17 17:22 17:27 Temperature Pulse Rate 83 85 82 Blood Pressure O2 Sat by Pulse 100 100 100 Oximetry 04/26/18 04/26/18 17:32 17:37 Temperature Pulse Rate 83 79 Blood Pressure O2 Sat by Pulse 100 99 Oximetry - Exam Breasts: normal Cardiovascular: Regular rate, Normal S1 Lungs: Clear to auscultation, Normal air movement Abdomen: Present: normal appearance, soft, normal bowel sounds. Absent: distention, tenderness, guarding Vulva: both: normal Uterus: Present: normal, firm. Absent: bogginess, tenderness FHR: category 1 Cervical Dilatation: 4 Cervical Effacement Percentage: 80 station: -2 Uterine Contraction Pattern: Irregular Uterine Tone Measurement Phase: Resting Uterine Contraction Intensity: Mild Extremities: normal Deep Tendon Reflex Grade: Normal +2 - Labs Labs: Abnormal Labs 04/24/18 04/24/18 04/24/18 00:00 06:18 14:08 Monocytes % (Manual) 8.0 H Magnesium 3.80 H 4.30 H 04/24/18 04/25/18 04/25/18 18:17 00:17 05:51 Monocytes % (Manual) Magnesium 4.40 H 4.10 H 4.30 H 04/25/18 04/25/18 04/26/18 13:15 19:05 01:21 Monocytes % (Manual) Magnesium 4.30 H 3.60 H 3.90 H 04/26/18 04/26/18 05:58 13:24 Monocytes % (Manual) Magnesium 3.40 H 4.00 H Laboratory Results - last 24 hr 04/25/18 04/26/18 04/26/18 19:05 01:21 05:58 Magnesium 3.60 H 3.90 H 3.40 H 04/26/18 13:24 Magnesium 4.00 H
--- NOTE | 2018-04-26 18:28 | Ultrasound Report ---
PROCEDURE: US OB >= 14 WEEKS FETUS TECHNIQUE: Real-time transabdominal sonography of the uterus, placenta, amniotic fluid, adnexa, and fetus was performed with image documentation. Measurements were obtained to determine age/size. M-mode Doppler was used to document heartbeat. ADDITIONAL GESTATION: None HISTORY: PPROM COMPARISONS: None available. FINDINGS: MATERNAL: Maternal cervix is not diagnostically visualized or evaluated. IUP: Single live intrauterine gestation. Position: Cephalic Placental position: Posterior and grade 3; the distance between the inferior placental edge and the internal cervical os is not measured. Amniotic fluid volume Normal. LUIS ARMANDO is 12.3 cm. Cardiac activity: Regular rhythm at 133 bpm. ANATOMY: The four-chamber view of the heart, fluid-containing urinary bladder, three-vessel cord, diaphragm, t horacic/lumbar/sacral spine, anterior abdominal wall cord insertion are identified and appear unremar kable. The stomach is not fluid filled at the time of the exam. brain, kidneys, and cervi raya spine were not diagnostically evaluated. BIOMETRY: Biparietal diameter: 8.2 cm, 33 weeks 1 day. Head circumference: 29.3 cm, 32 weeks 2 days. abdominal circumference: 30.1 cm, 34 weeks 6 days. Femur length: 6.7 cm, 34 weeks 2 days. Ratio biometry: Normal . Estimated Weight: 2378 grams +/- 352 grams. 5 pounds 4 ounces +/- 12.ounces. 26th percentil e by LMP. Mean Gestational Age (composite criteria) based on today's measurements: 33 weeks 5 days. Estimated Due Date: 06/09/2018. IMPRESSION: Single live intrauterine gestation at 33 weeks 5 days. Estimated due date: 06/09/2018. Amniotic fluid index measures 12.3 cm. This document is electronically signed by Sera Jj MD., April 26 2018 06:26:19 PM ET
--- NOTE | 2018-04-26 20:18 | Ultrasound Report ---
PROCEDURE: US OB BPP WO NON-STRESS HISTORY: PPROM FINDINGS: Real-time ultrasound of the pelvis was performed with attention to the gravid uterus. Biophysical profile was 6 out of 8. breathing was observed but observed breathing episode was l ess than 30 seconds which is too short to receive points for breathing on biophysical profile. cardiac activity is present at 124 bpm. lie is unclear from the images obtained. Amniotic fluid index was not measured but deepest obse rved pocket of fluid was 5.6 cm which appears within normal limits. IMPRESSION: Biophysical profile 6 of 8 This document is electronically signed by Dave Terrazas MD., April 26 2018 08:15:32 PM ET
[2018-04-26] MEDS: PEPCID IV SCH (22:48)
[2018-04-27] MEDS: AMBIEN PO PRN ×2 (00:26→23:15)
[2018-04-27] MEDS: AMPICILLIN/NS 1 GM/50 ML 1 GM/50 ML BAG IV SCH ×6 (03:02→22:30)
[2018-04-27] MEDS: STADOL IV PRN (05:44)
[2018-04-27] MEDS: LACTATED RINGERS 1,000 ML IV SCH ×2 (06:40→16:50)
--- NOTE | 2018-04-27 08:23 | Progress Note ---
Assessment and Plan - Patient Problems (1) labor Current Visit: Yes Status: Acute Plan to address problem: suspect that patient is not ruptured however she is dilated 4cm will continue inpatient management until patient demonstrates evidence of labor or PPROM Subjective - Subjective Date of service: 04/27/18 Principal diagnosis: PTL Interval history: 27y/o @ 35+0 weeks with suspected PPROM however exam does not confirm. Patient is dilated 4cm. She denies any recent leakage of fluid. Has completed magnesium and steroids. Patient reports: contractions, no new complaints, no loss of fluid, no vaginal bleeding Objective - Vital Signs Vital Signs: Vital Signs - 12hr 04/26/18 04/27/18 04/27/18 22:37 00:36 01:37 Pulse Rate 91 H 83 94 H Respiratory Rate Blood Pressure 116/56 127/55 120/68 04/27/18 04/27/18 04/27/18 02:36 05:44 06:14 Pulse Rate 92 H Respiratory 18 18 Rate Blood Pressure 101/51 04/27/18 08:09 Pulse Rate 82 Respiratory Rate Blood Pressure 124/61 - Labs Labs: Abnormal Labs 04/24/18 04/24/18 04/24/18 00:00 06:18 14:08 Monocytes % (Manual) 8.0 H Magnesium 3.80 H 4.30 H 04/24/18 04/25/18 04/25/18 18:17 00:17 05:51 Monocytes % (Manual) Magnesium 4.40 H 4.10 H 4.30 H 04/25/18 04/25/18 04/26/18 13:15 19:05 01:21 Monocytes % (Manual) Magnesium 4.30 H 3.60 H 3.90 H 04/26/18 04/26/18 04/26/18 05:58 13:24 17:27 Monocytes % (Manual) Magnesium 3.40 H 4.00 H 3.40 H 04/26/18 23:16 Monocytes % (Manual) Magnesium 3.70 H Laboratory Results - last 24 hr 04/26/18 04/26/18 04/26/18 13:24 17:27 23:16 Magnesium 4.00 H 3.40 H 3.70 H
[2018-04-27] MEDS: PRENATAL VITAMIN PO SCH (10:05)
[2018-04-27] MEDS: PEPCID IV SCH ×2 (10:05→22:30)
[2018-04-28] MEDS: AMPICILLIN/NS 1 GM/50 ML 1 GM/50 ML BAG IV SCH ×5 (02:30→22:53)
[2018-04-28] MEDS: STADOL IV PRN (06:00)
--- NOTE | 2018-04-28 10:28 | Progress Note ---
Assessment and Plan - Patient Problems (1) labor Current Visit: Yes Status: Acute Plan to address problem: will continue uterine monitoring Will entertain the possibility of outpatient management and patient does not demonstrate cervical change Subjective - Subjective Date of service: 04/28/18 Principal diagnosis: PTL Interval history: 27y/o @ 35+1 weeks without any significant complaints. The patient denies any leakage of fluid. She occasionally has irregular contractions. Patient reports: contractions, no new complaints, no loss of fluid, no vaginal bleeding Objective - Vital Signs Vital Signs: Vital Signs - 12hr 04/28/18 00:00 Temperature 98 F Pulse Rate 88 Respiratory 18 Rate Blood Pressure 118/52 [Left] O2 Sat by Pulse 100 Oximetry - Labs Labs: Abnormal Labs 04/24/18 04/24/18 04/24/18 00:00 06:18 14:08 Monocytes % (Manual) 8.0 H Magnesium 3.80 H 4.30 H 04/24/18 04/25/18 04/25/18 18:17 00:17 05:51 Monocytes % (Manual) Magnesium 4.40 H 4.10 H 4.30 H 04/25/18 04/25/18 04/26/18 13:15 19:05 01:21 Monocytes % (Manual) Magnesium 4.30 H 3.60 H 3.90 H 04/26/18 04/26/18 04/26/18 05:58 13:24 17:27 Monocytes % (Manual) Magnesium 3.40 H 4.00 H 3.40 H 04/26/18 23:16 Monocytes % (Manual) Magnesium 3.70 H
[2018-04-28] MEDS: PEPCID IV SCH (22:13)
[2018-04-28] MEDS: AMBIEN PO PRN (22:13)
[2018-04-28] MEDS: LACTATED RINGERS 1,000 ML IV SCH (22:16)
[2018-04-29] MEDS: AMPICILLIN/NS 1 GM/50 ML 1 GM/50 ML BAG IV SCH ×2 (02:52→06:42)
[2018-04-29 07:57] VITALS: BP 117/57
--- NOTE | 2018-04-29 08:29 | Progress Note ---
Assessment and Plan - Patient Problems (1) labor Current Visit: Yes Status: Acute Plan to address problem: patient has remained clinically stable discharge home on pelvic rest Subjective - Subjective Date of service: 04/29/18 Principal diagnosis: PTL Interval history: 27y/o @ 35+2 weeks without any significant complaints. The patient denies any leakage of fluid. Patient denies any regular uterine contractions. Patient reports: contractions, no new complaints, no loss of fluid, no vaginal bleeding Objective - Vital Signs Vital Signs: Vital Signs - 12hr 04/28/18 04/28/18 04/28/18 22:05 22:11 22:23 Temperature 99.9 F H Pulse Rate 88 81 Respiratory 18 Rate Blood Pressure 117/58 O2 Sat by Pulse 100 Oximetry 04/28/18 04/28/18 04/28/18 22:29 22:34 22:39 Temperature Pulse Rate 74 88 81 Respiratory Rate Blood Pressure O2 Sat by Pulse 100 100 100 Oximetry 04/28/18 04/28/18 04/28/18 22:44 22:49 22:54 Temperature Pulse Rate 81 78 76 Respiratory Rate Blood Pressure O2 Sat by Pulse 100 99 99 Oximetry 04/29/18 04/29/18 04/29/18 01:00 01:11 01:12 Temperature 99.8 F H Pulse Rate 87 94 H Respiratory 16 Rate Blood Pressure 133/62 O2 Sat by Pulse 100 Oximetry 04/29/18 04/29/18 04/29/18 01:17 01:23 01:28 Temperature Pulse Rate 88 87 87 Respiratory Rate Blood Pressure O2 Sat by Pulse 99 99 98 Oximetry 04/29/18 04/29/18 04/29/18 01:33 01:38 01:43 Temperature Pulse Rate 91 H 86 94 H Respiratory Rate Blood Pressure O2 Sat by Pulse 99 99 100 Oximetry 04/29/18 04/29/18 04/29/18 01:48 01:53 01:58 Temperature Pulse Rate 83 86 88 Respiratory Rate Blood Pressure O2 Sat by Pulse 98 97 97 Oximetry 04/29/18 04/29/18 04/29/18 02:03 02:08 02:13 Temperature Pulse Rate 89 87 86 Respiratory Rate Blood Pressure O2 Sat by Pulse 97 98 98 Oximetry 04/29/18 04/29/18 04/29/18 02:18 02:23 02:28 Temperature Pulse Rate 93 H 90 88 Respiratory Rate Blood Pressure O2 Sat by Pulse 97 98 98 Oximetry 04/29/18 04/29/18 04/29/18 02:33 02:38 05:22 Temperature 97.7 F Pulse Rate 88 90 Respiratory 18 Rate Blood Pressure O2 Sat by Pulse 98 96 Oximetry 04/29/18 04/29/18 04/29/18 05:28 05:29 05:34 Temperature Pulse Rate 68 77 78 Respiratory Rate Blood Pressure 117/56 O2 Sat by Pulse 98 99 Oximetry 04/29/18 04/29/18 04/29/18 05:39 05:44 05:49 Temperature Pulse Rate 79 77 81 Respiratory Rate Blood Pressure O2 Sat by Pulse 100 99 99 Oximetry 04/29/18 04/29/18 04/29/18 05:54 05:59 06:04 Temperature Pulse Rate 80 79 79 Respiratory Rate Blood Pressure O2 Sat by Pulse 99 99 99 Oximetry 04/29/18 04/29/18 04/29/18 06:09 06:14 06:19 Temperature Pulse Rate 82 81 83 Respiratory Rate Blood Pressure O2 Sat by Pulse 99 99 99 Oximetry 04/29/18 04/29/18 06:24 07:56 Temperature Pulse Rate 78 71 Respiratory Rate Blood Pressure 117/57 O2 Sat by Pulse 100 Oximetry - Exam Cervical Dilatation: 3 - Labs Labs: Abnormal Labs 04/24/18 04/24/18 04/24/18 00:00 06:18 14:08 Monocytes % (Manual) 8.0 H Magnesium 3.80 H 4.30 H 04/24/18 04/25/18 04/25/18 18:17 00:17 05:51 Monocytes % (Manual) Magnesium 4.40 H 4.10 H 4.30 H 04/25/18 04/25/18 04/26/18 13:15 19:05 01:21 Monocytes % (Manual) Magnesium 4.30 H 3.60 H 3.90 H 04/26/18 04/26/18 04/26/18 05:58 13:24 17:27 Monocytes % (Manual) Magnesium 3.40 H 4.00 H 3.40 H 04/26/18 23:16 Monocytes % (Manual) Magnesium 3.70 H
--- NOTE | 2018-04-29 08:31 | Discharge Summary ---
Providers - Providers Date of Admission: 04/27/18 08:16 Date of discharge: 04/29/18 Attending physician: RAE SHIN MD 04/26/18 09:07 Consult to Physician [CONS] Urgent Comment: Consulting Provider: GARRET MOROCHO Physician Instructions: Reason For Exam: PTL, previous csec Primary care physician: RAE SHIN MD Hospitalization Reason for admission: labor Discharge diagnosis: other ( labor) Hospital course: Patient admitted for labor and suspected PPROM. No clinical evidence t hat patient ruptured. Cervix remained stable at 3-4cm. Patient discharged home Condition at discharge: Good Disposition: DC-01 TO HOME OR SELFCARE - Discharge Diagnoses (1) labor Status: Acute Plan - Provider Discharge Summary Activity: no sex for 6 weeks, no heavy lifting 4 weeks, no strenuous exercise Diet: routine Instructions: routine Additional instructions: [] Smoking cessation referral if applicable(refer to patient education folder for contact #) [] Refer to [facility]'s [facility] Booklet Call your doctor immediately for: * Fever > 100.5 * Heavy vaginal bleeding ( >1 pad per hour) * Severe persistent headache * Shortness of breath * Reddened, hot, painful area to leg or breast * Drainage or odor from incision. * Keep incision clean and dry at all times and follow doctor's instructions regarding bathing/showering - Follow up plan Follow up: RAE SHIN MD [Primary Care Provider] - 7 Days Forms: Work/School Excuse Out Patient
== END 2018-04-29 10:15 | disposition home or self-care (01) | DRG 832 ==
LOC: TRG 18:11 → LD 21:31 → TRG 21:31 → OBSVTOIN 04-27 08:16
PROVIDERS: ADMIT Obstetrics & Gynecology; ATTEND Obstetrics & Gynecology
DX: O60.03 Preterm labor without delivery, third trimester (principal); O99.830 Other infection carrier state complicating pregnancy; O42.913 Preterm premature rupture of membranes, unspecified as to length of time between rupture and onset of labor, third trimester; Z79.899 Other long term (current) drug therapy; Z3A.34 34 weeks gestation of pregnancy
CPT/HCPCS: 36415; 76805; 76819; 81001; 83735; 85007; 85025; 86592; 86850; 86900; 86901; 87086; G0378; J0290; J0595; J0702; J3475; J7120

== ENCOUNTER 2018-04-30 12:31 | Outpatient (CLI) | payer BC ==
[2018-04-30] MEDS ORDERED: LACTATED RINGERS 1,000 ML IV ONE (15:46)
[2018-04-30] MEDS ORDERED: LACTATED RINGERS 1,000 ML ONE (15:50)
[2018-04-30 18:08] LABS: Hematocrit 31.8 % (30.3-42.9); Hemoglobin 10.9 gm/dl (10.1-14.3); Mean Corpuscular HGB Conc 34 % (30-34); Mean Corpuscular Volume 88 fl (79-97); Platelet Count 162 K/mm3 (140-440); Red Blood Count 3.62 M/mm3 (3.65-5.03); Red Cell Distribution Width 14.2 % (13.2-15.2)
[2018-04-30 18:17] LABS: INR 0.95 (0.87-1.13)
[2018-04-30 18:18] LABS: Partial Thromboplastin Time 25.8 Sec. (24.2-36.6)
[2018-04-30 18:42] VITALS: BP 118/52
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
== END 2018-04-30 18:50 | disposition home or self-care (01) ==
LOC: TRG 12:31 → LD 12:32 → TRG 18:50
PROVIDERS: ATTEND Obstetrics & Gynecology
DX: O47.03 False labor before 37 completed weeks of gestation, third trimester (principal); Z3A.34 34 weeks gestation of pregnancy
CPT/HCPCS: 36415; 59025; 76815; 85027; 85384; 85610; 85730; 96360; J7120

== ENCOUNTER 2018-05-04 11:40 | Outpatient (CLI) | payer BC ==
[2018-05-04 13:01] LABS: Bacteria,Urine 2+ /HPF (Negative); Bilirubin,Urine NEG (Negative); Blood,Urine SM (Negative); Color,Urine Yellow (Yellow); Mucus,Urine FEW /HPF; Protein,Urine <15 mg/dL mg/dL (Negative); Urobilinogen,Urine < 2.0 mg/dL (<2.0)
[2018-05-04] MEDS ORDERED: LACTATED RINGERS 1,000 ML ONE (13:31)
[2018-05-04] MEDS ORDERED: PEPCID IV ONE (13:34)
[2018-05-04 14:24] LABS: Hematocrit 36.7 % (30.3-42.9); Hemoglobin 11.9 gm/dl (10.1-14.3); Mean Corpuscular HGB Conc 32 % (30-34); Mean Corpuscular Volume 88 fl (79-97); Platelet Count 189 K/mm3 (140-440); Red Blood Count 4.16 M/mm3 (3.65-5.03); Red Cell Distribution Width 14.9 % (13.2-15.2)
[2018-05-04 14:35] LABS: Alanine Aminotransferase TNR units/L (7-56); Uric Acid TNR mg/dL (3.5-7.6)
[2018-05-04 15:13] LABS: Amphetamine Screen,Urine PRESUMPTIVE NEGATIVE; Benzodiazepines Screen,Urine PRESUMPTIVE NEGATIVE; Cannabinoid Screen,Urine PRESUMPTIVE NEGATIVE; Cocaine Screen,Urine PRESUMPTIVE NEGATIVE; Methadone Screen,Urine PRESUMPTIVE NEGATIVE; Opiate Screen,Urine PRESUMPTIVE NEGATIVE
[2018-05-04 16:22] VITALS: BP 128/79
--- NOTE | 2018-05-04 16:41 | Ultrasound Report ---
PROCEDURE: US OB BPP WO NON-STRESS TECHNIQUE: Limited ultrasound for BPP HISTORY: BPP and cardiac function COMPARISONS: 04/30/2018 FINDINGS: LMP 08/24/2017 clinical Age : 36W 1 D LMP EDC 05/31/2018 Biophysical profile scoring [2]movement [2]tone [2]breathing [2]fluid 09/30 overall score Cardiac motion: 148 BPM using M-mode doppler Amniotic Fluid Volume: Adequate IMPRESSION: Single viable at 36 weeks 1 days with 09/30 biophysical profile score This document is electronically signed by Richelle Dunaway MD., May 04 2018 04:38:34 PM ET
[2018-05-05] MEDS ORDERED: PEPCID IV ONE (13:31)
== END 2018-05-04 15:33 | disposition home or self-care (01) ==
LOC: TRG 11:40
PROVIDERS: ATTEND Obstetrics & Gynecology
DX: O47.03 False labor before 37 completed weeks of gestation, third trimester (principal); Z3A.30 30 weeks gestation of pregnancy
CPT/HCPCS: 36415; 59025; 76819; 80307; 81001; 82565; 85027; 96360; J7120

== ENCOUNTER 2018-05-14 07:07 | Inpatient (IN) | payer BC ==
[2018-05-14] MEDS ORDERED: PEPCID IV NR (07:46)
[2018-05-14] MEDS ORDERED: BICITRA PO ONE (07:46)
[2018-05-14] MEDS ORDERED: REGLAN IV NR (07:46)
[2018-05-14] MEDS ORDERED: ANCEF/STERILE WATER 2 GM/20 ML 2 GM/20 ML SYRINGE IV NR (08:00)
[2018-05-14] MEDS ORDERED: PITOCin/NS 20 UNIT/1000ML DRIP 20 UNITS/1,000 ML BAG IV SCH ×2 (08:00→11:00)
[2018-05-14] MEDS: LACTATED RINGERS 1,000 ML IV SCH ×2 (08:15→08:50)
--- NOTE | 2018-05-14 08:24 | History and Physical Report ---
History of Present Illness Date of examination: 05/14/18 Date of admission: 05/14/18 07:49 Chief complaint: contractions History of present illness: 27-year-old 011 at 37+4 weeks who presents in active labor with advanced cervical dilatation of 5 cm. The patient also complains of leakage of fluid and presentation. Past History - Obstetrical History : 3 Medications and Allergies Allergies Allergy/AdvReac Type Severity Reaction Status Date / Time No Known Allergies Allergy Verified 04/30/18 14:34 Home Medications Medication Instructions Recorded Confirmed Last Taken Type Vit Calc,Iron,Folic 1 each PO QDAY #30 tablet 02/14/17 04/30/18 06/11/17 Rx [ Vitamins] Active Meds: Active Medications Citric Acid/Sodium Citrate (Bicitra) 30 ml PO ONCE ONE Stop: 05/14/18 07:47 Famotidine (Pepcid) 20 mg IV ONCE ONE Stop: 05/14/18 07:47 Cefazolin Sodium (Ancef/Sterile Water 2 Gm/20 Ml) 2 gm in 20 mls @ 80 mls/hr IV PREOP NR; Protocol Lactated Ringer's (Lactated Ringers) 1,000 mls @ 2,250 mls/hr IV PREOP ALAN Stop: 05/15/18 08:27 Oxytocin/Sodium Chloride (Pitocin/Ns 20 Unit/1000ml Drip) 20 units in 1,000 mls @ 0 mls/hr IV TITR ALAN Metoclopramide HCl (Reglan) 10 mg IV ONCE ONE Stop: 05/14/18 07:47 - Vital Signs Vital signs: Vital Signs Pulse BP 93 H 133/69 05/14/18 07:21 05/14/18 07:21 Temp Pulse Resp BP Pulse Ox 93 H 133/69 05/14/18 07:21 05/14/18 07:21 Results Result Diagrams: 05/14/18 08:25 All other labs normal.
[2018-05-14 08:35] LABS: Basophils % (Auto) 0.2 % (0.0-1.8); Eosinophils % (Auto) 0.3 % (0.0-4.3); Hematocrit 35.2 % (30.3-42.9); Hemoglobin 11.7 gm/dl (10.1-14.3); Lymphocytes # (Auto) 2.1 K/mm3 (1.2-5.4); Mean Corpuscular HGB Conc 33 % (30-34); Mean Corpuscular Volume 88 fl (79-97); Monocytes % (Auto) 13.9 % (0.0-7.3); Platelet Count 165 K/mm3 (140-440); Red Blood Count 4.01 M/mm3 (3.65-5.03); Red Cell Distribution Width 14.3 % (13.2-15.2)
[2018-05-14] MEDS ORDERED: REGLAN ONE (08:36)
[2018-05-14] MEDS ORDERED: PEPCID IV ONE (08:37)
[2018-05-14] MEDS ORDERED: SUBLIMAZE ONE (08:50)
[2018-05-14] MEDS ORDERED: NARCAN 0.4 MG/1 ML IV PRN ×2 (09:00→10:28)
[2018-05-14] MEDS ORDERED: PHENERGAN PR PRN (09:00)
[2018-05-14] MEDS ORDERED: DILAUDID IV PRN ×2 (09:00)
[2018-05-14] MEDS ORDERED: PHENERGAN PO PRN (09:00)
[2018-05-14] MEDS ORDERED: ZOFRAN IV PRN (09:00)
[2018-05-14] MEDS ORDERED: SODIUM CHLORIDE FLUSH SYRINGE 10 ML IV PRN (09:00)
[2018-05-14] MEDS ORDERED: NEO SYNEPHRINE/NS Syringe(OR USE) IV ONE (09:19)
[2018-05-14] MEDS ORDERED: WATER FOR IRRIG STERILE IR ONE (09:30)
[2018-05-14] MEDS ORDERED: NACL 0.9% IR ONE (09:30)
[2018-05-14] MEDS ORDERED: TORADOL ONE (10:22)
--- NOTE | 2018-05-14 10:24 | Procedure Note ---
OB Delivery Note - Delivery Date of Delivery: 05/14/18 Surgeon: JULIAN ORTIZ Estimated blood loss: other (800ml) - Section Preop diagnosis: repeat Postop diagnosis: same section procedure: section, repeat low transverse Disposition: PACU Complications: none - Infant A at 1 minute: 8 at 5 minutes: 9 Infant Gender: Male (weight 6 lbs. 14 oz.)
--- NOTE | 2018-05-14 10:27 | Operative Report ---
Operative Report Operative Report: Date of surgery: 05/14/2018 Preoperative diagnosis: at 37+4 weeks; previous delivery; active labor Postoperative diagnosis: Same as above Procedure: Repeat low transverse delivery Surgeon: Poppy Ramirez M.D. Anesthesia: Regional Estimated blood loss: 800 mL IV fluids: 1900 mL lactated Ringer's Urine Output: 200 mL Findings: Liveborn male infant with Apgars of 8 and 9 weight 6 lbs. 14 oz. Indications: 27-year-old 011 at 37+4 weeks who presents in active labor w ith advanced cervical dilatation of 5 cm. The patient has a history of prior delivery and has elected to undergo repeat delivery. Procedure: The patient was taken to the operating room and given regional anesthesia without complication. She was prepped and draped in a normal sterile fashion. A Pfannenstiel skin incision was made down to layer the fascia which was nicked in the midline extended laterally with the Bovie cautery. The superior aspect of the rectus fascia was grasped with Angel clamps x2 and the rectus muscles off sharply. This was done in inferior fashion as well. The rectus muscle midline and peritoneum entered bluntly. An Kam retractor was then inserted. A bladder blade was placed. The vesicouterine peritoneum was then entered sharply with Metzenbaum scissors. A bladder flap was created digitally. A low transverse uterine incision was then made and extended digitally. There was clear fluid upon entry into the uterine cavity. The head was delivered through the incision with fundal pressure. The cord was clamped and cut x2 and was passed off to pediatrics. The placenta was then manually extracted. The uterus was then exteriorized and cleared of clots and debris. The uterine incision was then closed in a running locked fashion with 0 Vicryl additional imbricating stitch was applied for 2 layer closure. Additional oixity-sa-jokch stitches were placed in the uterine incision for hemostasis. The posterior cul-de-sac was then copiously irrigated. The uterus was replaced back into the abdomen and pelvis were the gutters were then irrigated. The Kam retractor was then removed. The peritoneum was then reapproximated with 3-0 Vicryl incorporating the rectus muscle. The fascia was then closed with 0 Vicryl in a running fashion. The skin was then reapproximated with 3-0 Monocryl on a Joe needle subcuticular fashion. Steri-Strips to place across the incision and a Crede procedures performed at the end of the surgery. A pressure dressing was applied to the incision. The surgery productive of a liveborn male infant with Apgars of 8 and 9 weight 6 lbs. 14 oz. The patient was taken to the recovery room in stable condition. All sponge laps and needle counts correct x2.
[2018-05-14] MEDS ORDERED: LANSINOH TP PRN (10:28)
[2018-05-14] MEDS ORDERED: TUCKS PAD TP PRN (10:28)
[2018-05-14] MEDS ORDERED: TYLENOL PO PRN (10:28)
[2018-05-14] MEDS ORDERED: TORADOL IV PRN (10:28)
[2018-05-14] MEDS ORDERED: MORPHINE IV PRN (10:28)
--- NOTE | 2018-05-14 10:39 | Post Anesthesia Evaluation ---
- Post Anesthesia Evaluation Patient Participated: Yes Airway Patent: Yes Stable Respiratory Function: Yes Nausea/Vomiting: No Temp > 96.8F: Yes Pain Manageable: Yes Adequeate Hydration: Yes Anesthesia Complications: No Block Receding Appropriately: Yes Patient on Ventilator: No
[2018-05-14] MEDS ORDERED: D5LR 1,000 ML IV SCH (11:00)
[2018-05-14] MEDS ORDERED: SODIUM CHLORIDE FLUSH SYRINGE 10 ML IV NR (11:00)
[2018-05-14] MEDS: PERCOCET 5/325 PO PRN ×2 (15:35→22:54)
[2018-05-14] MEDS: IBUPROFEN PO PRN (20:47)
[2018-05-15 00:19] LABS: Hematocrit 28.7 % (30.3-42.9); Hemoglobin 9.6 gm/dl (10.1-14.3)
[2018-05-15] MEDS: PERCOCET 5/325 PO PRN ×2 (04:52→11:58)
[2018-05-15] MEDS: IBUPROFEN PO PRN ×3 (04:52→22:07)
[2018-05-15] MEDS ORDERED: BOOSTRIX IM ONE (06:00)
--- NOTE | 2018-05-15 12:22 | Progress Note ---
Assessment and Plan A/P POD 1 repeat csec doing well vss routine POStop orders acute anemia 11-9 drop in hemoglobin Subjective - Subjective Date of service: 05/15/18 Principal diagnosis: s/p repeat csec Patient reports: appetite normal, voiding normally, pain well controlled, flatus, ambulating normally : doing well Objective - Vital Signs Latest vital signs: Vital Signs Temp Pulse Resp BP BP Pulse Ox 05/15/18 07:22 99.0 F 92 H 18 105/51 100 05/15/18 05:52 18 05/15/18 04:52 18 05/15/18 04:20 98.6 F 96 H 20 124/68 100 05/15/18 00:00 99.0 F 98 H 20 117/77 99 05/14/18 23:54 18 05/14/18 22:54 18 05/14/18 21:47 18 05/14/18 20:47 18 05/14/18 20:27 103 H 121/70 99 05/14/18 20:10 98.9 F 93 H 20 126/73 99 05/14/18 16:18 98.9 F 80 24 136/67 100 Intake and Output 05/14/18 05/15/18 05/15/18 23:59 07:59 15:59 Intake Total 240 Output Total 1300 300 Balance -1060 -300 Intake: Oral 240 Output: Urine 1300 300 Indwelling Catheter 900 Void 400 300 Other: Total, Intake Amount 240 Total, Output Amount 400 300 # Voids Void 1 2 - Exam Breasts: Present: normal Cardiovascular: Present: Regular rate, Normal S1 Lungs: Present: Clear to auscultation, Normal air movement Abdomen: Present: normal appearance, soft, normal bowel sounds. Absent: distention, tenderness, guarding Uterus: Present: normal, firm, fundal height below umbilicus. Absent: bogginess, tenderness Extremities: Present: normal Deep Tendon Reflex Grade: Normal +2 Incision: Present: normal, dry, dressed - Labs Labs: Abnormal lab results 05/14/18 Range/Units 22:58 Hgb 9.6 L (10.1-14.3) gm/dl Hct 28.7 L D (30.3-42.9) %
[2018-05-16] MEDS: PERCOCET 5/325 PO PRN ×2 (00:03→12:13)
[2018-05-16] MEDS: IBUPROFEN PO PRN ×2 (03:54→12:17)
--- NOTE | 2018-05-16 13:35 | Progress Note ---
Assessment and Plan - Patient Problems (1) delivery delivered Current Visit: Yes Status: Acute Plan to address problem: patient doing well discharge home Subjective - Subjective Date of service: 05/16/18 Principal diagnosis: s/p repeat csec Interval history: Patient doing well. Tolerating regular diet. Pain well controlled Patient reports: appetite normal, voiding normally, pain well controlled : doing well Objective - Vital Signs Latest vital signs: Vital Signs Temp Pulse Resp BP BP Pulse Ox 05/16/18 12:17 18 05/16/18 12:13 18 05/16/18 08:01 98.1 F 16 102/60 05/16/18 03:54 18 05/16/18 00:15 98.2 F 94 H 20 120/71 99 05/16/18 00:03 18 05/15/18 22:07 18 05/15/18 17:57 99.3 F 91 H 20 135/77 97 Intake and Output 05/15/18 05/16/18 05/16/18 22:59 06:59 14:59 Intake Total 960 240 240 Balance 960 240 240 Intake: Oral 600 240 240 Intake, Free Water 360 Other: Total, Intake Amount 240 240 240 Voiding Method Toilet # Voids 1 Void 1 1 1 - Exam Abdomen: Present: normal appearance Incision: Present: normal
--- NOTE | 2018-05-16 13:37 | Discharge Summary ---
Providers - Providers Date of Admission: 05/14/18 07:49 Date of discharge: 05/16/18 Attending physician: JULIAN ORTIZ Primary care physician: RAE SHIN MD Hospitalization Reason for admission: section Delivery: Procedure: section, repeat low transverse Discharge diagnosis: IUP at term delivered baby: male Hospital course: Patient admitted in labor with advanced cervical dilation. Previous delivery. Patient underwent repeat c/s. Postop uncomplicated Condition at discharge: Good Disposition: DC-01 TO HOME OR SELFCARE - Discharge Diagnoses (1) delivery delivered Status: Acute Plan - Discharge Medications Prescriptions: Ferrous Sulfate 325 mg PO BID #60 tablet. Ibuprofen [Motrin] 600 mg PO Q8H PRN #30 tablet PRN Reason: Pain oxyCODONE /ACETAMINOPHEN [Percocet 5/325] 1 tab PO Q6HR PRN #30 tablet PRN Reason: Pain - Provider Discharge Summary Activity: no sex for 6 weeks, no heavy lifting 4 weeks, no strenuous exercise Diet: routine Instructions: routine Additional instructions: [] Smoking cessation referral if applicable(refer to patient education folder for contact #) [] Refer to [facility]'s [facility] Booklet Call your doctor immediately for: * Fever > 100.5 * Heavy vaginal bleeding ( >1 pad per hour) * Severe persistent headache * Shortness of breath * Reddened, hot, painful area to leg or breast * Drainage or odor from incision. * Keep incision clean and dry at all times and follow doctor's instructions regarding bathing/showering schedule followup in 2 weeks - Follow up plan
[2018-05-16 14:02] VITALS: BP 129/69
== END 2018-05-16 17:10 | disposition home or self-care (01) | DRG 787 ==
LOC: TRG 07:07 → APU 07:49 → OB 12:12
PROVIDERS: ADMIT Obstetrics & Gynecology; ATTEND Obstetrics & Gynecology
PROC: 10D00Z1 Extraction of Products of Conception, Low, Open Approach (ICD-10-PCS; principal; 2018-05-14)
DX: O34.211 Maternal care for low transverse scar from previous cesarean delivery (principal); R71.0 Precipitous drop in hematocrit; D64.9 Anemia, unspecified; O62.0 Primary inadequate contractions; Z3A.37 37 weeks gestation of pregnancy; Z37.0 Single live birth
CPT/HCPCS: 36415; 85014; 85018; 85025; 86850; 86900; 86901; 90471; 90715; G0378; J0690; J1885; J2370; J2590; J2765; J3010; J7120; J7121